=== PATIENT | female | born 1980 | race Two or more races ===

== ENCOUNTER 2017-05-22 15:20 | Emergency (ER) | payer MEDICAID, OTHER ==
[~2017-05-22] VITALS: Ht 167.6 cm; Wt 121.0 kg
[2017-05-22] MEDS ORDERED: ALBUTEROL SULFATE 2.5 MG/3 ML NPPB ONE (16:00)
[2017-05-22 16:40] LABS: WHITE BLOOD COUNT 13.3 x10^3/uL (3.4-10)
[2017-05-22 16:52] LABS: BLOOD UREA NITROGEN 11 mg/dL (7-18)
[2017-05-22 16:57] LABS: IS PT STATUS REG ER OR PRE ER? YES
[2017-05-22] MEDS ORDERED: ALBUTEROL SULFATE 2.5 MG/3 ML ONE (17:02)
[2017-05-22 18:03] VITALS: BP 128/89
== END 2017-05-22 18:06 | disposition home or self-care (01) ==
LOC: ED 17:30
DX: J45.909 Unspecified asthma, uncomplicated (principal); J20.8 Acute bronchitis due to other specified organisms
CPT/HCPCS: 36415; 71020; 80048; 82040; 83880; 84484; 85025; 93005; 94640; 99285; J7512; J7613

== ENCOUNTER 2017-05-23 09:03 | Emergency (ER) | payer MEDICAID ==
[2017-05-23 09:09] VITALS: BP 155/98
[2017-05-23] MEDS ORDERED: SODIUM CHLORIDE 0.9% 1,000 ML IV ONE (09:12)
[2017-05-23] MEDS ORDERED: SODIUM CHLORIDE FLUSH 10ML SYR IVF ONE (09:30)
[2017-05-23] MEDS ORDERED: NALOXONE 1 MG/ML, 2ML ONE (09:32)
[2017-05-23] MEDS ORDERED: PLEASE ENTER HEIGHT AND WEIGHT MC SCH (10:00)
[2017-05-23 10:04] LABS: HEMATOCRIT 42.6 % (34.6-47.8); HEMOGLOBIN 14.6 g/dL (11.7-16.4); WHITE BLOOD COUNT 16.8 x10^3/uL (3.4-10)
[2017-05-23 10:10] LABS: IS PT STATUS REG ER OR PRE ER? YES
[2017-05-23] MEDS ORDERED: OMNIPAQUE 350 MG/ML, 100ML BOTTLE ONE (10:13)
== END 2017-05-23 11:22 | disposition home or self-care (01) ==
LOC: ED 09:40
DX: J45.909 Unspecified asthma, uncomplicated (principal); R07.2 Precordial pain
CPT/HCPCS: 36415; 71275; 83880; 84484; 85025; 85610; 93005; 96360; 99285; J7030; Q9967